=== PATIENT | female | born 1980 | race Caucasian/White ===

== ENCOUNTER 2024-09-06 18:42 | Inpatient (IN) | payer SELFPAY ==
[2024-09-06] MEDS ORDERED: Lactulose 20 GM (30 mL) UDCUP ONE (19:16)
[2024-09-06 19:49] LABS: Hematocrit 29.8 % (36.0-47.0); Hemoglobin 10.2 g/dL (12.0-16.0); Mean Corpuscular HGB CONC 34.2 g/dL (32.0-36.0); Mean Corpuscular Hemoglobin 38.1 pg (27.0-31.0); Mean Corpuscular Volume 111.2 fL (78.0-98.0); Mean Platelet Volume 12.1 fL (7.4-10.4); Platelet Count 112 10x3/uL (130-400); RBC Distribution Width 25.4 % (11.5-14.5); Red Blood Cell (RBC) Count 2.68 mill/uL (4.20-5.40)
[2024-09-06 20:00] LABS: INR-International Normal Ratio 1.3; PTT 28.6 sec (22.9-36.1); Prothrombin Time 16.5 sec (12.0-14.7)
[2024-09-06 20:03] LABS: Lipase 38 U/L (8-78)
[2024-09-06 20:06] LABS: ALT (SGPT) 62 U/L (8-55); AST (SGOT) 338 U/L (5-34); Acetaminophen Less than 10 mcg/mL (Less than 10); Alcohol Less than 10.0 mg/dL (Less than 10); Alkaline Phosphatase 1277 U/L (40-110); Anion Gap 22 mmol/L (10-20); BUN (Urea Nitrogen) 45 mg/dL (7.0-18.7); Bilirubin, Total 8.8 mg/dL (0.2-1.2); Calc. Creatinine Clearance 0 mL/min (70-130); Calcium 9.3 mg/dL (7.8-10.44); Carbon Dioxide 18 mmol/L (22-29); Chloride 91 mmol/L (98-107); Estimated GFR 26; Globulin 5.7 g/dL (2.4-3.5); Glucose 109 mg/dL (70-105); Potassium 4.8 mmol/L (3.5-5.1); Protein, Total 7.7 g/dL (6.0-8.3); Salicylate Less than 8.0 mg/dL (Less than 8.0); Sodium 126 mmol/L (136-145)
[2024-09-06 20:08] LABS: Anisocytosis SLIGHT = 6-15 cells HPF (0-5); Band 4 % (5-11); Eosinophils 2 % (0-10); Lymphocytes 22 % (21-51); Macrocytosis SLIGHT = 6-15 cells HPF (0-5); Monocytes 6 % (0-10); Neutrophil 63 % (42-75); Nucleated RBC (Manual Ct) 18 % (0); Platelet Adequacy Comment Platelets Decreased; Polychromasia MODERATE = 3-4 cells HPF (0-2); Reactive Lymphocytes 2 % (0-10); Smudge Cells 25.7 %; Troponin I 0.014 ng/mL (< 0.028)
[2024-09-06] MEDS ORDERED: Thiamine HCl 200 MG/2 ML VIAL ONE (20:28)
[2024-09-06] MEDS ORDERED: Lorazepam 2 MG/ML VIAL ONE (20:31)
[2024-09-06 21:47] LABS: Magnesium 2.7 mg/dL (1.6-2.6)
[2024-09-06] MEDS ORDERED: Albumin 25% 100 ML ONE (22:25)
[2024-09-06] MEDS ORDERED: cefTRIAXone (ROCEPHIN) 1 GM VIAL ONE (22:25)
[2024-09-06] MEDS ORDERED: Sodium Chloride 0.9% 100 ML ONE (22:30)
[2024-09-06] MEDS ORDERED: Acetaminophen 650 MG Suppository PR PRN (22:35)
[2024-09-06] MEDS ORDERED: Acetaminophen 325 MG TAB PO PRN (22:35)
[2024-09-06] MEDS ORDERED: Ondansetron PF 4 MG/2 ML Vial IVP PRN (22:35)
[2024-09-06] MEDS ORDERED: Ondansetron ODT 4 MG TAB PO PRN (22:35)
[2024-09-06] MEDS ORDERED: Fentanyl CADD 100 ML IV SCH (23:45)
[2024-09-06 23:50] LABS: Actual Bicarbonate (HCO3v) 19.4 mEq/L (22-28); Analyzer IN Cardio ER; Base Excess -6.4 mEq/L (-2.0 to +3.0); Calcium, Ionized (venous) 1.11 mmol/L (1.16-1.32); Chloride (VBG) 94 mmol/L (98-106); Hematocrit-VBG 28 % (36.0-47.0); Hemoglobin (Hb) 9.4 g/dL (11.7-16.0); Potassium (VBG) 5.67 mmol/L (3.70-5.30); Sodium 128 mmol/L (133-146); pH (venous) 7.305 (7.32-7.43)
[2024-09-06] MEDS ORDERED: NOREPINEPHRINE 8 MG/250 ML-D5W 250 ML ONE (23:53)
[2024-09-07 01:02] LABS: Actual Bicarbonate (HCO3a) 17.8 mEq/L (22-28); Analyzer IN Cardio ER; Base Excess (BEa) -4.4 mEq/L (-2.0 to +3.0); Calcium, Ionized (arterial) 1.11 mmol/L (1.12-1.30); Carboxyhemoglobin (COHb) 0.2 gm% (0.0-3.0); Hematocrit-ABG 30 % (36.0-47.0); Hemoglobin (Hb) 10.1 g/dL (12.0-16.0); O2 Tension (PaO2), arterial 95.2 mmHg (80.0-100.0); Potassium - ABG Lab 4.54 mmol/L (3.70-5.30); pH, Arterial 7.483 (7.35-7.45)
[2024-09-07 01:03] LABS: CO2 Tension 24.3 mmHg (35.0-45.0); Puncture Site RRAD
[2024-09-07 01:04] LABS: ALV-art Gradient 230.925 mmHg (0-20)
[2024-09-07 01:14] LABS: RBC Count-Automated (BF) 125 /cu.mm; WBC/Nucleated-Auto (BF) 34 /cu.mm
[2024-09-07 01:15] LABS: BF Color Yellow; Body Fluid Source Ascites Body Fluid; Clarity Clear (Clear); Tube # 1
[2024-09-07 01:30] LABS: BF Segmented Neutrophils 7 %; Cell Count Non Hematic 28 %; Lymphocytes 65 %
[2024-09-07 02:03] LABS: Amphetamine Not Detected (NotDetected); Barbiturates Screen Not Detected (NotDetected); Benzodiazepine Screen Not Detected (NotDetected); Cocaine Metabolite Screen Detected (NotDetected); Methadone Not Detected (NotDetected); Methamphetamine Not Detected (NotDetected); Opiate Screen Not Detected (NotDetected); Oxycodone Screen Not Detected (NotDetected); Phencyclidine (PCP) Not Detected (NotDetected); THC/Cannabinoid Screen Not Detected (NotDetected); Tricyclic Screen Not Detected (NotDetected)
[2024-09-07 02:24] LABS: Bacteria/HPF None Seen HPF (None Seen); Bilirubin 2+ (Negative); Blood, Urine 2+ (Negative); CAUTI Indications for Culture Alt mental st,lethar; Clarity Turbid (Clear); Glucose, Urine (Dipstick) Normal (Negative); Ketone, Urine Negative (Negative); Leukocyte Negative Leu/uL (Negative); Nitrite Negative (Negative); Protein, Urine (Dipstick) 30 mg/dL (Neg-Trace); RBC/HPF 21-50 HPF (0-3); Specific Gravity, Urine 1.018 (1.002-1.036); Transitional Epithelial 0-3 HPF (None Seen); Urobilinogen 6 mg/dL (Less than 2); pH, Urine 5.5 (5.0-9.0)
[2024-09-07 02:32] LABS: Urine Culture Reflex No No
[2024-09-07 02:41] LABS: Hematocrit 29.1 % (36.0-47.0); Mean Corpuscular HGB CONC 34.4 g/dL (32.0-36.0); Mean Corpuscular Hemoglobin 37.5 pg (27.0-31.0); Mean Platelet Volume 9.7 fL (7.4-10.4); Platelet Count 74 10x3/uL (130-400); RBC Distribution Width 25.4 % (11.5-14.5); Red Blood Cell (RBC) Count 2.67 mill/uL (4.20-5.40)
[2024-09-07 02:45] LABS: HBsAg Index 0.25 S/CO (0-0.99); Hep A IgM AB NONREACTIVE (NonReactive); Hep B Core IgM Index 0.15 S/CO (0-0.79); Hep B Surf Ag NONREACTIVE S/CO (NonReactive); Hep C IgG Ab NONREACTIVE S/CO (NonReactive); Hep C Index 0.55 S/CO (0-0.79); Hepatitis B Core IgM Abs NONREACTIVE S/CO (NonReactive)
[2024-09-07 02:59] LABS: Anisocytosis SLIGHT = 6-15 cells HPF (0-5); Band 6 % (5-11); Eosinophils 1 % (0-10); Hypochromia SLIGHT = 6-15 cells HPF (0-5); Lymphocytes 29 % (21-51); Macrocytosis SLIGHT = 6-15 cells HPF (0-5); Monocytes 3 % (0-10); Neutrophil 60 % (42-75); Nucleated RBC (Manual Ct) 41 % (0); Platelet Adequacy Comment Platelets Decreased; Polychromasia SLIGHT = 2-3 cells HPF (0-2); Smudge Cells 55.9 %
[2024-09-07] MEDS ORDERED: Ventilator Sedation Protocol 1 EACH FS SCH (03:15)
[2024-09-07] MEDS ORDERED: Propofol BOLUS 1,000 MG/100 ML VIAL IV PRN (03:30)
[2024-09-07] MEDS ORDERED: Morphine 2 MG/ML VIAL SLOW IVP PRN (03:30)
[2024-09-07] MEDS ORDERED: Fentanyl CADD 100 ML IV SCH (03:30)
[2024-09-07] MEDS ORDERED: Fentanyl BOLUS 250 ML IVPB PRN (03:30)
[2024-09-07] MEDS ORDERED: Propofol 1,000 MG/100 ML VIAL IV PRN (03:30)
[2024-09-07] MEDS ORDERED: DISCONTINUE PREVIOUS NARCOTIC PAIN MEDICATIONS AND BENZODIAZEPINES FS SCH (03:30)
[2024-09-07] MEDS ORDERED: Albumin 25% 25 GM (100 mL) BOT IVPB SCH (04:00)
[2024-09-07 07:45] VITALS: BMI 27.5
[2024-09-07 08:32] LABS: Sodium 139 mmol/L (136-145)
[2024-09-07 08:33] LABS: Anion Gap 33 mmol/L (10-20); Carbon Dioxide 10 mmol/L (22-29); Chloride 101 mmol/L (98-107)
[2024-09-07 08:34] LABS: BUN (Urea Nitrogen) 50 mg/dL (7.0-18.7); Calc. Creatinine Clearance 32 mL/min (70-130)
[2024-09-07 08:35] LABS: ALT (SGPT) 51 U/L (8-55); AST (SGOT) 289 U/L (5-34); Albumin 2.7 g/dL (3.5-5.0); Alkaline Phosphatase 1166 U/L (40-110); Bilirubin, Total 8.3 mg/dL (0.2-1.2); Estimated GFR 22; Globulin 4.9 g/dL (2.4-3.5); Glucose 99 mg/dL (70-105); Iron 143 ug/dL (50-170); Protein, Total 7.6 g/dL (6.0-8.3)
[2024-09-07 08:36] LABS: Iron Binding Capacity, Total 139 mcg/dL (265-497)
[2024-09-07] MEDS: Octreotide Acetate 50 MCG in Sodium Chloride 0.9% 50 ML IVPB SCH (08:39)
[2024-09-07] MEDS: Lactulose 10 GM/15 ML Oral Solution PR SCH (08:39)
[2024-09-07] MEDS: Pantoprazole 40 MG VIAL IVP SCH ×2 (08:40→08:51)
[2024-09-07 08:44] LABS: Actual Bicarbonate (HCO3a) 20.4 mEq/L (22-28); Base Excess (BEa) -3.5 mEq/L (-2.0 to +3.0); CO2 Tension 32.7 mmHg (35.0-45.0); Calcium, Ionized (arterial) 1.11 mmol/L (1.12-1.30); Carboxyhemoglobin (COHb) 1.2 gm% (0.0-3.0); Hematocrit-ABG 30 % (36.0-47.0); Hemoglobin (Hb) 10.3 g/dL (12.0-16.0); Potassium - ABG Lab 4.55 mmol/L (3.70-5.30); pH, Arterial 7.413 (7.35-7.45)
[2024-09-07 08:46] LABS: O2 Tension (PaO2), arterial 55.7 mmHg (80.0-100.0); Puncture Site Right Brachial art
[2024-09-07 08:47] LABS: ALV-art Gradient 331.225 mmHg (0-20)
[2024-09-07] MEDS: Albumin 25% 25 GM (100 mL) BOT IVPB SCH (08:51)
[2024-09-07] MEDS: Lactulose 20 GM (30 mL) UDCUP PER TUBE SCH (08:51)
[2024-09-07] MEDS ORDERED: Sodium Chloride 0.9% 1,000 ML IV SCH ×2 (11:45)
[2024-09-07] MEDS: Vasopressin In 0.9 % NaCl 40 UNIT in Premix 1 BAG IV SCH (11:47)
[2024-09-07] MEDS: Furosemide 40 MG (4 mL) VIAL SLOW IVP SCH (12:37)
[2024-09-07] MEDS: Lorazepam 2 MG/ML VIAL SLOW IVP PRN (13:30)
[2024-09-07] MEDS: NOREPINEPHRINE 8 MG/250 ML-D5W 250 ML IVPB SCH (13:49)
[2024-09-07 13:54] LABS: Fluid, pH - Pleural Fld 7.382 (7.60 - 7.66)
[2024-09-07] MEDS: Sodium Bicarb 50 MEQ/50 ML Abboject 8.4% SYRINGE IVP SCH (14:51)
[2024-09-07] MEDS: Albumin 5% 12.5 GM (250 mL) BOT IVPB SCH (15:30)
[2024-09-07 15:37] LABS: Base Excess (BEa) -8.5 mEq/L (-2.0 to +3.0); CO2 Tension 41.3 mmHg (35.0-45.0); Calcium, Ionized (arterial) 1.11 mmol/L (1.12-1.30); Carboxyhemoglobin (COHb) 0.6 gm% (0.0-3.0); Hematocrit-ABG 24 % (36.0-47.0); Hemoglobin (Hb) 8.3 g/dL (12.0-16.0); Potassium - ABG Lab 4.49 mmol/L (3.70-5.30); pH, Arterial 7.256 (7.35-7.45)
[2024-09-07 15:38] LABS: Puncture Site Arterial Line
[2024-09-07 15:40] LABS: ALV-art Gradient 557.375 mmHg (0-20)
[2024-09-07] MEDS: Phenylephrine 40 MG/NS 250 ML 250 ML IVPB SCH (16:10)
[2024-09-07] MEDS ORDERED: Sterile Water 10 ML VIAL FS PRN (16:14)
[2024-09-07] MEDS: Midodrine HCl 5 MG TAB PO SCH (16:15)
[2024-09-07] MEDS: Albumin 5% 500 ML ONE (16:15)
[2024-09-07] MEDS: Vecuronium 10 MG VIAL IV SCH (16:16)
[2024-09-07] MEDS: Hydrocortisone Sod Succ/PF 100 mg/2 ml Vial IVP SCH ×2 (16:16→21:18)
[2024-09-07] MEDS: Vecuronium 10 MG VIAL ONE (16:17)
[2024-09-07] MEDS: Hydrocortisone Sod Succ/PF 100 mg/2 ml Vial ONE ×2 (16:17)
[2024-09-07 16:20] LABS: Hematocrit 21.7 % (36.0-47.0); Hemoglobin 7.2 g/dL (12.0-16.0); Mean Corpuscular HGB CONC 33.2 g/dL (32.0-36.0); Mean Corpuscular Hemoglobin 37.5 pg (27.0-31.0); Mean Platelet Volume 11.8 fL (7.4-10.4); Platelet Count 71 10x3/uL (130-400); RBC Distribution Width 25.2 % (11.5-14.5); Red Blood Cell (RBC) Count 1.92 mill/uL (4.20-5.40)
[2024-09-07 16:21] LABS: Platelet Count 70 10x3/uL (130-400)
[2024-09-07 16:22] LABS: Fluid, Triglycerides 48 mg/dL (Not Available); Pleural Fluid, Amylase Less than 30 U/L (Not Available); Pleural Fluid, Glucose 111 mg/dL; Pleural Fluid, LDH 245 U/L (Not Available); Pleural Fluid, Protein 1.5 g/dL
[2024-09-07 16:25] LABS: BF Color Yellow; Body Fluid Source Thoracentesis Fluid; Clarity Hazy (Clear); RBC Count-Automated (BF) 3000 /cu.mm; Tube # EDTA; WBC/Nucleated-Auto (BF) 79 /cu.mm
[2024-09-07 16:28] LABS: INR-International Normal Ratio 2.1; Prothrombin Time 23.4 sec (12.0-14.7)
[2024-09-07 16:29] LABS: Fibrinogen 161 mg/dL (253-463); PTT 43.2 sec (22.9-36.1)
[2024-09-07 16:34] LABS: ALT (SGPT) 27 U/L (8-55); AST (SGOT) 150 U/L (5-34); Albumin 3.5 g/dL (3.5-5.0); Alkaline Phosphatase 655 U/L (40-110); Anion Gap 21 mmol/L (10-20); BUN (Urea Nitrogen) 48 mg/dL (7.0-18.7); Bilirubin, Total 6.3 mg/dL (0.2-1.2); Calc. Creatinine Clearance 38 mL/min (70-130); Calcium 8.5 mg/dL (7.8-10.44); Carbon Dioxide 17 mmol/L (22-29); Chloride 95 mmol/L (98-107); Estimated GFR 27; Globulin 2.4 g/dL (2.4-3.5); Glucose 121 mg/dL (70-105); Magnesium 2.6 mg/dL (1.6-2.6); Phosphorus 5.3 mg/dL (2.3-4.7); Potassium 4.6 mmol/L (3.5-5.1); Protein, Total 5.9 g/dL (6.0-8.3); Sodium 128 mmol/L (136-145)
[2024-09-07] MEDS: SODIUM BICARBONATE IV SCH (16:40)
[2024-09-07] MEDS: DEXTROSE 5% IV SCH (16:40)
[2024-09-07] MEDS: WATER IV SCH (16:40)
[2024-09-07 16:43] LABS: Anisocytosis SLIGHT = 6-15 cells HPF (0-5); Band 16 % (5-11); Eosinophils 2 % (0-10); Large Platelets 2.8 % (0-5); Lymphocytes 60 % (21-51); Macrocytosis SLIGHT = 6-15 cells HPF (0-5); Monocytes 2 % (0-10); Neutrophil 15 % (42-75); Nucleated RBC (Manual Ct) 43 % (0); Plasma Cells 3 % (0-0); Platelet Adequacy Comment Platelets Decreased; Polychromasia MODERATE = 3-4 cells HPF (0-2); Reactive Lymphocytes 2 % (0-10); Smudge Cells 48.1 %; Target Cells SLIGHT = 2-5 cells HPF (0-1)
[2024-09-07 16:47] LABS: BF Segmented Neutrophils 36 %; Cell Count Non Hematic 15 %; Lymphocytes 49 %
[2024-09-07 17:21] LABS: Base Excess (BEa) -7.2 mEq/L (-2.0 to +3.0); CO2 Tension 49.2 mmHg (35.0-45.0); Calcium, Ionized (arterial) 1.05 mmol/L (1.12-1.30); Carboxyhemoglobin (COHb) 0.2 gm% (0.0-3.0); Hematocrit-ABG 26 % (36.0-47.0); Hemoglobin (Hb) 8.8 g/dL (12.0-16.0); Potassium - ABG Lab 4.96 mmol/L (3.70-5.30); pH, Arterial 7.228 (7.35-7.45)
[2024-09-07 17:27] LABS: Puncture Site Right Radial artery
[2024-09-07 17:44] LABS: Fluid, pH - Pleural Fld Greater than 7.500 (7.60 - 7.66)
[2024-09-07 20:04] LABS: #Basophils 0.05 10x3/uL (0.0-0.2); %Basophils 0.6 % (0.0-1.0); %Eosinophils 2.6 % (0.0-10.0); %Lymphocytes 62.3 % (21.0-51.0); %Monocytes 4.6 % (0.0-10.0); %Neutrophils 28.9 % (42.0-75.0); Hematocrit 27.1 % (36.0-47.0); Hemoglobin 9.2 g/dL (12.0-16.0); Mean Corpuscular HGB CONC 33.9 g/dL (32.0-36.0); Mean Corpuscular Hemoglobin 35.5 pg (27.0-31.0); Mean Corpuscular Volume 104.6 fL (78.0-98.0); Mean Platelet Volume 12.4 fL (7.4-10.4); Platelet Count 63 10x3/uL (130-400); RBC Distribution Width 26.3 % (11.5-14.5); Red Blood Cell (RBC) Count 2.59 mill/uL (4.20-5.40)
[2024-09-07] MEDS: Bumetanide 1 MG/4 ML VIAL IVP SCH (20:17)
[2024-09-07] MEDS: Rifaximin 200 MG TAB PO SCH (20:59)
[2024-09-07] MEDS: cefTRIAXone\\ROCEPHIN 1 GM in Sodium Chloride 0.9% 100 ML IVPB SCH (22:21)
[2024-09-07 22:27] LABS: Actual Bicarbonate (HCO3a) 18.4 mEq/L (22-28); Base Excess (BEa) -7.3 mEq/L (-2.0 to +3.0); CO2 Tension 37.9 mmHg (35.0-45.0); Calcium, Ionized (arterial) 0.97 mmol/L (1.12-1.30); Carboxyhemoglobin (COHb) 1.1 gm% (0.0-3.0); Hematocrit-ABG 29 % (36.0-47.0); Hemoglobin (Hb) 9.8 g/dL (12.0-16.0); O2 Tension (PaO2), arterial 60.3 mmHg (80.0-100.0); Potassium - ABG Lab 4.75 mmol/L (3.70-5.30); pH, Arterial 7.304 (7.35-7.45)
[2024-09-07 22:28] LABS: Puncture Site Arterial Line
[2024-09-07 22:29] LABS: ALV-art Gradient 605.325 mmHg (0-20)
[2024-09-07 23:02] LABS: Fibrinogen 370 mg/dL (253-463); INR-International Normal Ratio 2.2; Prothrombin Time 24.1 sec (12.0-14.7)
[2024-09-07 23:14] LABS: Actual Bicarbonate (HCO3a) 16.2 mEq/L (22-28); Base Excess (BEa) -10.9 mEq/L (-2.0 to +3.0); Calcium, Ionized (arterial) 1.02 mmol/L (1.12-1.30); Carboxyhemoglobin (COHb) 0.2 gm% (0.0-3.0); Hematocrit-ABG 29 % (36.0-47.0); O2 Tension (PaO2), arterial 67.1 mmHg (80.0-100.0); Potassium - ABG Lab 3.96 mmol/L (3.70-5.30); pH, Arterial 7.214 (7.35-7.45)
[2024-09-07 23:22] LABS: Puncture Site Arterial Line
[2024-09-07 23:34] LABS: PTT 158.5 sec (22.9-36.1)
[2024-09-08 00:01] LABS: ALT (SGPT) 32 U/L (8-55); AST (SGOT) 173 U/L (5-34); Albumin 3.4 g/dL (3.5-5.0); Alkaline Phosphatase 561 U/L (40-110); Anion Gap 26 mmol/L (10-20); BUN (Urea Nitrogen) 47 mg/dL (7.0-18.7); Bilirubin, Total 6.9 mg/dL (0.2-1.2); Calc. Creatinine Clearance 40 mL/min (70-130); Calcium 8.2 mg/dL (7.8-10.44); Carbon Dioxide 15 mmol/L (22-29); Chloride 92 mmol/L (98-107); Estimated GFR 29; Globulin 2.7 g/dL (2.4-3.5); Glucose 205 mg/dL (70-105); Potassium 4.1 mmol/L (3.5-5.1); Protein, Total 6.1 g/dL (6.0-8.3); Sodium 129 mmol/L (136-145)
[2024-09-08] MEDS: Octreotide Acetate 1,250 MCG in Sodium Chloride 0.9% 250 ML 250 ML IVPB SCH (01:02)
[2024-09-08] MEDS: Sodium Bicarb 50 MEQ/50 ML Abboject 8.4% SYRINGE IVP SCH ×4 (01:02→14:45)
[2024-09-08 04:31] LABS: Hemoglobin 8.3 g/dL (12.0-16.0); Mean Corpuscular HGB CONC 34.6 g/dL (32.0-36.0); Mean Corpuscular Hemoglobin 35.5 pg (27.0-31.0); Mean Corpuscular Volume 102.6 fL (78.0-98.0); Mean Platelet Volume 13.2 fL (7.4-10.4); Platelet Count 51 10x3/uL (130-400); RBC Distribution Width 28.2 % (11.5-14.5); Red Blood Cell (RBC) Count 2.34 mill/uL (4.20-5.40)
[2024-09-08 04:38] LABS: Lactic Acid 11.27 mmol/L (0.5-2.2)
[2024-09-08 04:41] LABS: ALT (SGPT) 31 U/L (8-55); AST (SGOT) 176 U/L (5-34); Albumin 3.5 g/dL (3.5-5.0); Alkaline Phosphatase 493 U/L (40-110); Anion Gap 26 mmol/L (10-20); BUN (Urea Nitrogen) 38 mg/dL (7.0-18.7); Bilirubin, Total 6.3 mg/dL (0.2-1.2); Calc. Creatinine Clearance 48 mL/min (70-130); Calcium 8.2 mg/dL (7.8-10.44); Carbon Dioxide 20 mmol/L (22-29); Chloride 94 mmol/L (98-107); Estimated GFR 36; Globulin 2.2 g/dL (2.4-3.5); Glucose 195 mg/dL (70-105); Potassium 3.8 mmol/L (3.5-5.1); Protein, Total 5.7 g/dL (6.0-8.3); Sodium 136 mmol/L (136-145)
[2024-09-08 04:53] LABS: INR-International Normal Ratio 2.2; Prothrombin Time 24.2 sec (12.0-14.7)
[2024-09-08 04:54] LABS: PTT 47.6 sec (22.9-36.1)
[2024-09-08 04:59] LABS: Immunoglob - A (Total IgA) 236 mg/dL (65-421); Immunoglob - G (Total IgG) 895 mg/dL (552-1631); Immunoglob - M (Total IgM) 196 mg/dL (33-293)
[2024-09-08 05:40] LABS: HIV (1/2) Antibody/Antigen NONREACTIVE (NonReactive); HIV 1/2 INDEX 0.06 S/CO (<1.00)
[2024-09-08 07:06] LABS: Anisocytosis MODERATE=16-30 cells HPF (0-5); Band 19 % (5-11); Burr Cells SLIGHT = 2-5 cells HPF (0-1); Eosinophils 1 % (0-10); Large Platelets 4.1 % (0-5); Lymphocytes 56 % (21-51); Macrocytosis SLIGHT = 6-15 cells HPF (0-5); Monocytes 3 % (0-10); Myelocyte 3 % (0-0); Neutrophil 18 % (42-75); Nucleated RBC (Manual Ct) 53 % (0); Platelet Adequacy Comment Platelets Decreased; Polychromasia SLIGHT = 2-3 cells HPF (0-2); Smudge Cells 40.2 %
[2024-09-08 08:07] LABS: Base Excess (BEa) -5.4 mEq/L (-2.0 to +3.0); CO2 Tension 44.4 mmHg (35.0-45.0); Calcium, Ionized (arterial) 0.99 mmol/L (1.12-1.30); Carboxyhemoglobin (COHb) 0.9 gm% (0.0-3.0); Hematocrit-ABG 31 % (36.0-47.0); Hemoglobin (Hb) 10.5 g/dL (12.0-16.0); O2 Tension (PaO2), arterial 72.1 mmHg (80.0-100.0); Potassium - ABG Lab 3.79 mmol/L (3.70-5.30); pH, Arterial 7.292 (7.35-7.45)
[2024-09-08 08:08] LABS: Puncture Site ALINE
[2024-09-08 08:45] LABS: Lactic Acid 10.96 mmol/L (0.5-2.2)
[2024-09-08] MEDS ORDERED: Sodium Chloride 0.9% 1,000 ML FS SCH (10:00)
[2024-09-08] MEDS ORDERED: CRRT- NOTIFY PHARMACY FS PRN (10:00)
[2024-09-08] MEDS: Albumin 25% 25 GM (100 mL) BOT IVPB SCH (10:56)
[2024-09-08] MEDS: Sodium Bicarb 50 MEQ/50 ML Abboject 8.4% SYRINGE ONE ×2 (11:38)
[2024-09-08] MEDS: Sodium Bicarbonate 150 mEq in Dextrose 5% IV SCH (11:49)
[2024-09-08 12:59] LABS: Sodium, Urine Less than 20 mmol/L (Not Available); Urea Nitrogen, Random Urine 235 mg/dl
[2024-09-08] MEDS: Midodrine HCl 5 MG TAB PO SCH (13:54)
[2024-09-08 14:22] VITALS: BP 74/44
[2024-09-08 14:26] VITALS: TEMP 98.5
[2024-09-08] MEDS ORDERED: Norepinephrine 16 MG in Dextrose 5% in Water 234 ML IVPB PRN (15:15)
[2024-09-08] MEDS: NOREPINEPHRINE 8 MG/250 ML-D5W 0 ML ONE (16:10)
[2024-09-08] MEDS: Morphine 4 MG/ML VIAL SLOW IVP PRN (16:45)
[2024-09-08] MEDS: Lorazepam 2 MG/ML VIAL SLOW IVP PRN (16:46)
[2024-09-08 16:48] VITALS: BMI 25.1
[2024-09-09 13:50] LABS: ANA Symphony (Qualitative) Negative (Negative); ANA Symphony (Quantitative) 0.2 Ratio (< 0.7 Negative); EliA Vaculitis New Method **** NEW METHOD ****; dsDNA IgG Antibody 5.4 IU/mL (<10 Negative)
[2024-09-10 11:15] LABS: Alpha-1-Antitrypsin 121 mg/dL (101-187)
[2024-09-12 15:17] LABS: Smooth Muscle Total ABS 4 Units (0-19)
[2024-09-12 21:12] LABS: Alkaline Phosphastase Total 547 IU/L (44-121); Bone 44 % (14-68); Intestinal 7 % (0-18); Liver 49 % (18-85)
== END 2024-09-08 18:20 | disposition expired | DRG 441 ==
LOC: ERS 18:42 → ERHOLD 22:38 → CCU 09-07 05:12
PROVIDERS: ADMIT Internal Medicine; ATTEND Internal Medicine
PROC: 3E03329 Introduction of Other Anti-infective into Peripheral Vein, Percutaneous Approach (ICD-10-PCS; 2024-09-06)
PROC: 30233J1 Transfusion of Nonautologous Serum Albumin into Peripheral Vein, Percutaneous Approach (ICD-10-PCS; 2024-09-06)
PROC: 3E033XZ Introduction of Vasopressor into Peripheral Vein, Percutaneous Approach (ICD-10-PCS; 2024-09-06)
PROC: 0D9670Z Drainage of Stomach with Drainage Device, Via Natural or Artificial Opening (ICD-10-PCS; 2024-09-06)
PROC: 0W9G3ZZ Drainage of Peritoneal Cavity, Percutaneous Approach (ICD-10-PCS; 2024-09-06)
PROC: 06HY33Z Insertion of Infusion Device into Lower Vein, Percutaneous Approach (ICD-10-PCS; 2024-09-06)
PROC: 0W9930Z Drainage of Right Pleural Cavity with Drainage Device, Percutaneous Approach (ICD-10-PCS; 2024-09-07)
PROC: 03HY32Z Insertion of Monitoring Device into Upper Artery, Percutaneous Approach (ICD-10-PCS; 2024-09-07)
PROC: 4A133B1 Monitoring of Arterial Pressure, Peripheral, Percutaneous Approach (ICD-10-PCS; 2024-09-07)
PROC: 4A133J1 Monitoring of Arterial Pulse, Peripheral, Percutaneous Approach (ICD-10-PCS; 2024-09-07)
PROC: 30233N1 Transfusion of Nonautologous Red Blood Cells into Peripheral Vein, Percutaneous Approach (ICD-10-PCS; 2024-09-07)
PROC: 30233M1 Transfusion of Nonautologous Plasma Cryoprecipitate into Peripheral Vein, Percutaneous Approach (ICD-10-PCS; 2024-09-07)
PROC: 4A133R1 Monitoring of Arterial Saturation, Peripheral, Percutaneous Approach (ICD-10-PCS; 2024-09-07)
PROC: 0BH17EZ Insertion of Endotracheal Airway into Trachea, Via Natural or Artificial Opening (ICD-10-PCS; 2024-09-07)
PROC: 5A1945Z Respiratory Ventilation, 24-96 Consecutive Hours (ICD-10-PCS; 2024-09-07)
PROC: 06HY33Z Insertion of Infusion Device into Lower Vein, Percutaneous Approach (ICD-10-PCS; principal; 2024-09-08)
DX: K72.00 Acute and subacute hepatic failure without coma (principal); I82.220 Acute embolism and thrombosis of inferior vena cava; J96.01 Acute respiratory failure with hypoxia; K76.7 Hepatorenal syndrome; J95.812 Postprocedural air leak; R18.8 Other ascites; J90 Pleural effusion, not elsewhere classified; E87.1 Hypo-osmolality and hyponatremia; N17.9 Acute kidney failure, unspecified; R04.2 Hemoptysis; K76.82 Hepatic encephalopathy; K70.10 Alcoholic hepatitis without ascites; K74.60 Unspecified cirrhosis of liver; Z66 Do not resuscitate; R74.01 Elevation of levels of liver transaminase levels; F41.8 Other specified anxiety disorders; K82.8 Other specified diseases of gallbladder; E87.70 Fluid overload, unspecified; D63.1 Anemia in chronic kidney disease; N18.30 Chronic kidney disease, stage 3 unspecified
CPT/HCPCS: 31500; 36415; 36430; 36556; 36600; 49082; 51702; 70450; 71045; 76705; 80053; 80074; 80306; 80307; 81001; 81256; 82042; 82103; 82105; 82140; 82150; 82390; 82533; 82728; 82805; 82945; 83516; 83540; 83550; 83605; 83615; 83690; 83735; 83880; 83986; 84075; 84100; 84157; 84300; 84436; 84443; 84478; 84484; 84540; 85025; 85049; 85060; 85300; 85362; 85384; 85610; 85730; 86015; 86038; 86225; 86850; 86900; 86901; 87070; 87102; 87116; 87205; 87206; 87389; 88112; 88305; 89051; 90945; 93005; 94002; 94003; 94760; 96365; 96366; 96367; 96368; 96374; 96375; 99292; J0696; J1642; J1720; J1940; J2060; J2272; J2354; J2470; J3411; J3490; J7050; J7070; P9012; P9016; P9045; P9047